=== PATIENT | male | born 1940 | race Caucasian/White ===

== ENCOUNTER 2023-01-20 12:25 | Inpatient (IN) | payer MEDICARE ==
[~2023-01-20] VITALS: Ht 172.7 cm; Wt 76.1 kg
[~2023-01-20 12:25] MED LIST: ACET-868 PO; ASPI-1169 PO; BLOO-668 IN; CARV6.252 PO; HYDR-3974 PO; INSU100V3 SQ; SIMV-49 PO; VALS80TA2 PO
[2023-01-20] MEDS ORDERED: BLOO-668 IN (14:29)
[2023-01-20] MEDS ORDERED: LISI10TA29 PO (14:29)
[2023-01-20] MEDS ORDERED: METO25TA4 PO (14:29)
[2023-01-20 16:00] VITALS: BP 133/58; TEMP 98.2; O2SAT 97
[2023-01-20 20:00] VITALS: BP_SYST 119; BP_SYST 169; BP_DIAS 97; TEMP 97.7; O2SAT 95
[2023-01-20] MEDS ORDERED: ACETAMINOPHEN 325 MG TABLET PO PRN (21:30)
[2023-01-20] MEDS ORDERED: MAG HYDROX/AL HYDROX/SIMETH 30 ML UDC PO PRN (21:30)
[2023-01-20] MEDS ORDERED: ONDANSETRON HCL/PF 4 MG/2 ML VIAL IVP PRN (21:30)
[2023-01-20] MEDS ORDERED: MAGNESIUM HYDROXIDE 30 ML UDC PO PRN (21:30)
[2023-01-20] MEDS ORDERED: DEXTROSE 50%-WATER 50 ML DISP.SYRIN IV PRN (23:00)
[2023-01-20] MEDS: IV NS 0.9% 1,000 ML IV PRN (23:30)
[2023-01-21] VITALS: BP 150/78; TEMP 97.7; O2SAT 97
[2023-01-21 04:00] VITALS: BP 145/72; TEMP 97.6; O2SAT 98
[2023-01-21 05:56] LABS: BASOPHILS % (AUTO) 0.4 % (0.0-2.0); EOSINOPHILS # (AUTO) 0.1 K/uL (0.0-0.7); EOSINOPHILS % (AUTO) 1.7 % (0.0-6.0); HEMATOCRIT 39 % (39-51); HEMOGLOBIN 12.7 g/dL (13.5-17.5); LYMPHOCYTES % (AUTO) 14.1 % (20.0-44.0); MEAN CORPUSCULAR HEMOGLOBIN 29 PG (26.0-33.0); MEAN CORPUSCULAR HGB CONC 33 g/dl (31.0-36.0); MEAN CORPUSCULAR VOLUME 88 fL (80-96); MONOCYTES # (AUTO) 0.6 K/uL (0.1-1.30); MONOCYTES % (AUTO) 8.1 % (2.0-12.0); NEUTROPHILS # (AUTO) 5.5 K/uL (1.8-8.9); NEUTROPHILS % (AUTO) 75.7 % (43.0-81.0); PLATELET COUNT (AUTO) 192 K/uL (150-450); RED BLOOD CELL COUNT(AUTO) 4.43 MIL/uL (4.5-6.0); RED CELL DISTRIBUTION WIDTH 14.3 % (11.5-15.0); WHITE BLOOD COUNT (AUTO) 7.3 K/uL (4.3-11.0)
[2023-01-21 06:11] LABS: CALCIUM, SERUM 8.4 mg/dL (8.5-10.1); CARBON DIOXIDE 25 mmol/L (21-32); CHLORIDE 107 mmol/L (98-107); GLUCOSE 106 mg/dL (74-106); POTASSIUM 3.5 mmol/L (3.5-5.1); SODIUM SERUM 141 mmol/L (136-145); UREA NITROGEN, BLOOD 15 mg/dL (7-18)
[2023-01-21 06:14] LABS: CHOLESTEROL 115 mg/dL (<200); HDL CHOLESTEROL 52 mg/dL (40-60); LDL 59 mg/dL (0-99); TRIGLYCERIDES 52 mg/dL (30-150)
[2023-01-21] MEDS: BLOOD SUGAR DIAGNOSTIC 1 EACH STRIP IN SCH ×4 (06:56→20:56)
[2023-01-21] MEDS: INSULIN REGULAR, HUMAN 100 UNIT/ML 3 ML VIAL SQ PRN ×4 (06:56→20:57)
[2023-01-21 08:35] VITALS: BP 156/76; TEMP 97.6; O2SAT 97
[2023-01-21] MEDS: LISINOPRIL (10MG) 10 MG TABLET PO SCH (10:37)
[2023-01-21] MEDS: METOPROLOL SUCCINATE 25 MG TAB.SR.24H PO SCH (10:38)
[2023-01-21 12:00] VITALS: BP 161/52; TEMP 97.8; O2SAT 98
[2023-01-21] MEDS: IV NS 0.9% 1,000 ML IV PRN (13:07)
[2023-01-21 13:53] LABS: THYROID STIMULATING HORMONE 1.167 uIU/mL (0.358-3.74)
[2023-01-21 16:00] VITALS: BP 152/75; TEMP 98.1; O2SAT 97
[2023-01-21] MEDS: CYANOCOBALAMIN 1,000 MCG/ML VIAL IM SCH (19:10)
[2023-01-21 20:00] VITALS: BP 155/102; TEMP 98.4; O2SAT 97
[2023-01-22] VITALS: BP 154/83; TEMP 98.6; O2SAT 96
[2023-01-22] MEDS: IV NS 0.9% 1,000 ML IV PRN ×2 (02:41→17:57)
[2023-01-22 04:00] VITALS: BP 132/112; TEMP 97.5; O2SAT 97
[2023-01-22] MEDS: BLOOD SUGAR DIAGNOSTIC 1 EACH STRIP IN SCH ×4 (05:06→20:38)
[2023-01-22] MEDS: INSULIN REGULAR, HUMAN 100 UNIT/ML 3 ML VIAL SQ PRN ×4 (05:07→20:39)
[2023-01-22 08:00] VITALS: BP 156/90; TEMP 98.2; O2SAT 97
[2023-01-22] MEDS: METOPROLOL SUCCINATE 25 MG TAB.SR.24H PO SCH (08:22)
[2023-01-22] MEDS: LISINOPRIL (10MG) 10 MG TABLET PO SCH (08:22)
[2023-01-22] MEDS: CYANOCOBALAMIN 1,000 MCG/ML VIAL IM SCH (09:44)
[2023-01-22 12:00] VITALS: BP 150/79; TEMP 98.8; O2SAT 96
[2023-01-22 16:00] VITALS: BP 107/75; TEMP 98.4; O2SAT 96
[2023-01-22 20:00] VITALS: BP 164/85; TEMP 98.4; O2SAT 96
[2023-01-22] MEDS ORDERED: CLONIDINE HCL 0.1 MG TABLET PO ONE (23:30)
[2023-01-23] VITALS: BP 164/72; TEMP 97.9; O2SAT 95
[2023-01-23] MEDS: IV NS 0.9% 1,000 ML IV PRN ×2 (01:24→15:57)
[2023-01-23 04:00] VITALS: BP 165/80; TEMP 97.5; O2SAT 98
[2023-01-23] MEDS ORDERED: hydrALAZINE HCL IV 20 MG VIAL IV ONE (05:00)
[2023-01-23] MEDS: INSULIN REGULAR, HUMAN 100 UNIT/ML 3 ML VIAL SQ PRN (05:24)
[2023-01-23] MEDS: BLOOD SUGAR DIAGNOSTIC 1 EACH STRIP IN SCH ×4 (05:24→22:00)
[2023-01-23 06:02] LABS: BASOPHILS % (AUTO) 0.3 % (0.0-2.0); EOSINOPHILS # (AUTO) 0.2 K/uL (0.0-0.7); EOSINOPHILS % (AUTO) 2.2 % (0.0-6.0); HEMATOCRIT 37 % (39-51); HEMOGLOBIN 12.4 g/dL (13.5-17.5); LYMPHOCYTES # (AUTO) 1.1 K/uL (0.8-4.8); LYMPHOCYTES % (AUTO) 12.2 % (20.0-44.0); MEAN CORPUSCULAR HEMOGLOBIN 29 PG (26.0-33.0); MEAN CORPUSCULAR HGB CONC 33 g/dl (31.0-36.0); MEAN CORPUSCULAR VOLUME 88 fL (80-96); MONOCYTES # (AUTO) 0.7 K/uL (0.1-1.30); MONOCYTES % (AUTO) 7.7 % (2.0-12.0); NEUTROPHILS # (AUTO) 6.9 K/uL (1.8-8.9); NEUTROPHILS % (AUTO) 77.6 % (43.0-81.0); PLATELET COUNT (AUTO) 185 K/uL (150-450); RED BLOOD CELL COUNT(AUTO) 4.26 MIL/uL (4.5-6.0); RED CELL DISTRIBUTION WIDTH 14.5 % (11.5-15.0)
[2023-01-23 06:12] LABS: CALCIUM, SERUM 8.6 mg/dL (8.5-10.1); CARBON DIOXIDE 24 mmol/L (21-32); CHLORIDE 106 mmol/L (98-107); CREATININE 0.9 mg/dL (0.6-1.3); GLUCOSE 110 mg/dL (74-106); MAGNESIUM 1.9 mg/dL (1.8-2.4); POTASSIUM 3.4 mmol/L (3.5-5.1); SODIUM SERUM 139 mmol/L (136-145); UREA NITROGEN, BLOOD 12 mg/dL (7-18)
[2023-01-23 07:27] VITALS: BP 164/72; TEMP 97.9; O2SAT 95
[2023-01-23 07:30] VITALS: BP 151/85; TEMP 98.1; O2SAT 99
[2023-01-23] MEDS ORDERED: POTASSIUM CHLORIDE 20 MEQ TAB.PRT.SR PO ONE (07:30)
[2023-01-23] MEDS: LISINOPRIL (10MG) 10 MG TABLET PO SCH (08:29)
[2023-01-23] MEDS: METOPROLOL SUCCINATE 25 MG TAB.SR.24H PO SCH (08:29)
[2023-01-23] MEDS: CYANOCOBALAMIN 1,000 MCG/ML VIAL IM SCH (08:30)
[2023-01-23 16:00] VITALS: BP 148/75; TEMP 98.2; O2SAT 98
[2023-01-23 20:00] VITALS: BP 158/74; TEMP 97.9; O2SAT 96
[2023-01-24] VITALS: BP 139/73; TEMP 98.6; O2SAT 98
[2023-01-24 04:00] VITALS: BP 150/65; TEMP 98.1; O2SAT 97
[2023-01-24 05:42] LABS: BASOPHILS # (AUTO) 0.1 K/uL (0.0-0.2); BASOPHILS % (AUTO) 0.6 % (0.0-2.0); EOSINOPHILS # (AUTO) 0.3 K/uL (0.0-0.7); EOSINOPHILS % (AUTO) 3.3 % (0.0-6.0); HEMATOCRIT 36 % (39-51); HEMOGLOBIN 11.6 g/dL (13.5-17.5); LYMPHOCYTES # (AUTO) 0.8 K/uL (0.8-4.8); LYMPHOCYTES % (AUTO) 10.1 % (20.0-44.0); MEAN CORPUSCULAR HEMOGLOBIN 29 PG (26.0-33.0); MEAN CORPUSCULAR HGB CONC 33 g/dl (31.0-36.0); MEAN CORPUSCULAR VOLUME 88 fL (80-96); MONOCYTES # (AUTO) 0.7 K/uL (0.1-1.30); MONOCYTES % (AUTO) 8.5 % (2.0-12.0); NEUTROPHILS # (AUTO) 6.2 K/uL (1.8-8.9); NEUTROPHILS % (AUTO) 77.5 % (43.0-81.0); PLATELET COUNT (AUTO) 177 K/uL (150-450); RED BLOOD CELL COUNT(AUTO) 4.03 MIL/uL (4.5-6.0); RED CELL DISTRIBUTION WIDTH 14.2 % (11.5-15.0)
[2023-01-24 06:05] LABS: CALCIUM, SERUM 8.3 mg/dL (8.5-10.1); CARBON DIOXIDE 24 mmol/L (21-32); CHLORIDE 107 mmol/L (98-107); CREATININE 0.9 mg/dL (0.6-1.3); GLUCOSE 103 mg/dL (74-106); POTASSIUM 3.6 mmol/L (3.5-5.1); SODIUM SERUM 138 mmol/L (136-145); UREA NITROGEN, BLOOD 14 mg/dL (7-18)
[2023-01-24] MEDS: IV NS 0.9% 1,000 ML IV PRN (07:09)
[2023-01-24 07:30] VITALS: BP 155/74; TEMP 98.6; O2SAT 96
[2023-01-24] MEDS: BLOOD SUGAR DIAGNOSTIC 1 EACH STRIP IN SCH ×2 (07:30→12:24)
[2023-01-24 09:34] VITALS: BP 155/74
[2023-01-24] MEDS: LISINOPRIL (10MG) 10 MG TABLET PO SCH (09:34)
[2023-01-24] MEDS: CYANOCOBALAMIN 1,000 MCG/ML VIAL IM SCH (09:34)
[2023-01-24] MEDS ORDERED: CYAN10006 IM (12:20)
[2023-01-24] MEDS ORDERED: GADOTERATE MEGLUMINE 10 MMOL/20 ML VIAL IV ONE (13:10)
== END 2023-01-24 15:00 | DRG 72 ==
LOC: TELE 14:02
PROVIDERS: ADMIT Nurse Practitioner Acute Care; ATTEND Nurse Practitioner Family
PROC: 05HC33Z Insertion of Infusion Device into Left Basilic Vein, Percutaneous Approach (ICD-10-PCS; principal; 2023-01-21)
DX: G93.41 Metabolic encephalopathy (principal); I10 Essential (primary) hypertension; E11.9 Type 2 diabetes mellitus without complications; F03.90 Unspecified dementia, unspecified severity, without behavioral disturbance, psychotic disturbance, mood disturbance, and anxiety; E53.8 Deficiency of other specified B group vitamins; M81.0 Age-related osteoporosis without current pathological fracture; Z96.612 Presence of left artificial shoulder joint; Z91.81 History of falling; Z79.899 Other long term (current) drug therapy; R00.1 Bradycardia, unspecified
CPT/HCPCS: 36410; 36415; 70553-TC; 80048-TC; 80061-TC; 82607-TC; 82962-TC; 83735-TC; 83921; 84100-TC; 84439-TC; 84443-TC; 85025-TC; 97116-TC; 97530-TC; A4223; A6253; A9575; G0378; J0360; J1815; J3420; J7030